=== PATIENT | male | born 1990 | race Caucasian/White ===

== ENCOUNTER 2024-04-04 04:20 | Emergency (ER) | payer MEDICAID ==
[~2024-04-04] VITALS: Ht 172.7 cm; Wt 61.2 kg
[2024-04-04 04:22] VITALS: BP 112/84; PULSE 98; RESP 14; TEMP 97.6; O2SAT 99
[2024-04-04 04:29] VITALS: TEMP 97.6
[2024-04-04 05:17] LABS: BASOPHILS # (AUTO) 0.1 K/uL (0.00-0.22); BASOPHILS % (AUTO) 0.2 % (0.0-2.0); EOSINOPHILS % (AUTO) 0.1 % (0.0-4.0); HEMATOCRIT 35.9 % (36-52); HEMOGLOBIN 12.2 g/dL (12.0-18.0); LYMPHOCYTES # (AUTO) 1.3 K/uL (2.0-11.5); LYMPHOCYTES % (AUTO) 5.5 % (20.5-51.1); MEAN CORPUSCULAR HEMOGLOBIN 30 pg (27-31); MEAN CORPUSCULAR HGB CONC 34 g/dL (33-37); MEAN CORPUSCULAR VOLUME 87.4 fL (80-94); MONOCYTES # (AUTO) 1.2 K/uL (0.8-1.0); MONOCYTES % (AUTO) 4.9 % (1.7-9.3); NEUTROPHILS # (AUTO) 21.4 K/uL (1.8-7.7); NEUTROPHILS % (AUTO) 89.3 % (42.2-75.2); PLATELET COUNT (AUTO) 227 K/uL (140-450); RED BLOOD CELL COUNT(AUTO) 4.11 MIL/uL (4.20-6.10); RED CELL DISTRIBUTION WIDTH 13.6 % (11.6-13.7)
[2024-04-04 05:19] LABS: WHITE BLOOD COUNT (AUTO) 23.9 K/uL (4.8-10.8)
[2024-04-04 05:26] LABS: ANION GAP 9.6 (8-16); CALCIUM 9.4 mg/dL (8.5-10.1); CARBON DIOXIDE 29.6 mmol/L (21-32); CREATININE 0.9 mg/dL (0.6-1.3); POTASSIUM 4.2 mmol/L (3.5-5.1)
[2024-04-04] MEDS ORDERED: NAPR-337 PO (05:42)
[2024-04-04] MEDS ORDERED: LEVO750T75 PO (05:42)
[2024-04-04] MEDS: LEVOFLOXACIN 750 MG/D5W PREMIX 150 ML IV ONE (05:50)
[2024-04-04] MEDS: KETOROLAC 30 MG/ML VIAL IVP ONE (06:10)
[2024-04-04 06:51] VITALS: BP 107/85; PULSE 89; RESP 16; O2SAT 99
== END 2024-04-04 07:22 | disposition home or self-care (01) ==
LOC: MED 04:20
DX: J18.9 Pneumonia, unspecified organism (principal); E87.1 Hypo-osmolality and hyponatremia; Z79.899 Other long term (current) drug therapy
CPT/HCPCS: 36415; 71045; 80048; 84484; 85025; 93005; 96365; 96375; 99285; J1885; J1956